=== PATIENT | male | born 1985 | race Caucasian/White ===

== ENCOUNTER 2023-06-26 15:01 | Emergency (ER) | payer OTHER, SELFPAY ==
[2023-06-26] VITALS (15 sets, daily range): BP systolic 122–162; BP diastolic 76–104; PULSE 67–90; RESP 12–27; TEMP 36.7–36.9; O2SAT 97–99
--- NOTE | ~2023-06-26 | XR_ITS ---
EXAMINATION: XR chest 1V portable INDICATION: Chest pain TECHNIQUE: Portable AP chest at 1521 hours COMPARISON: None available FINDINGS: The lungs are free of acute opacities. No pleural effusion or pneumothorax. The cardiomedia stinal silhouette is normal. IMPRESSION: 1. No acute cardiopulmonary abnormality. Reviewed, dictated and finalized at location L. [facility] [employer] MANAGER
--- NOTE | 2023-06-26 15:10 | ECG_ITS ---
Measurements Intervals [place] Rate: 74 P: 69 CA: 139 QRS: 93 QRSD: 72 T: 60 QT: 333 QTc: 371 Interpretive Statements SINUS RHYTHM WITH SINUS ARRHYTHMIA RIGHT AXIS DEVIATION PEAKED T WAVES- CONSIDER HYPERKALEMIA BASELINE WANDER- II, III, AVR, AVL, AVF ABNORMAL ECG NO PREVIOUS ECG AVAILABLE FOR COMPARISON Electronically Signed On 06-26-2023 18:39:07 [employer] by Alton Mosqueda D.O.
[2023-06-26 15:37] LABS: Basophils Absolute Auto 0.12 K/mm3 (0.00-0.10); Eosinophils Percent Auto 2.5 % (1.0-6.0); Hemoglobin 15.5 g/dL (14.0-18.0); Immature Granulocyte Absolute 0.02 K/mm3 (0.00-0.00); Immature Granulocyte Percent A 0.2 % (0.0-0.0); Lymphocytes Absolute Auto 2.03 K/mm3 (1.10-4.50); Lymphocytes Percent Auto 16.8 % (18.0-42.0); Mean Corpuscular Hemoglobin 30.5 pg (27.0-31.0); Mean Corpuscular Volume 92.5 fL (78.0-102.0); Mean Platelet Volume 9.9 fl (8.7-11.0); Monocytes Absolute Auto 0.79 K/mm3 (0.10-0.90); Monocytes Percent Auto 6.5 % (2.0-11.0); Neutrophils Absolute Auto 8.8 K/mm3 (1.7-7.2); Platelet Count Result 293 K/mm3 (150-420); Red Blood Count 5.08 M/mm3 (4.70-6.10); White Blood Count 12.1 K/mm3 (4.8-10.8)
[2023-06-26 15:51] LABS: Partial Thromboplastin Time 28.1 SEC (23.90-30.70); Prothrombin Time 10.9 Seconds (9.50-12.10)
[2023-06-26 16:19] LABS: Alanine Aminotransferase 20 U/L (16-63); Albumin Level 3.9 g/dL (3.4-5.0); Alkaline Phosphatase 82 U/L (46-116); Anion Gap 7 mmol/L (8-16); Aspartate Amino Transferase 13 U/L (15-37); Bilirubin,Total 0.4 mg/dL (0.00-1.00); Blood Urea Nitrogen 11 mg/dL (7-18); Calcium 8.7 mg/dL (8.5-10.1); Carbon Dioxide 29 mmol/L (21-32); Chloride 104 mmol/L (98-108); Estimated CRCL calculation 79 ml/min; Estimated Glomerular Filt Rate > 60; Glucose 99 mg/dL (70-99); Lipase 38 U/L (16-77); NT Pro B Type Natriuretic Pept 33 pg/mL (0-125); Osmolality Calculated 289 mOsm/kg (285-295); Potassium 4.5 mmol/L (3.5-5.1); Sodium 140 mmol/L (136-145); Troponin I 4.8 ng/L (0.00-60.4)
--- NOTE | 2023-06-26 16:47 | ED.CHESTPAIN ---
HPI - Chest Pain General Chief Complaint: Chest Pain Stated Complaint: chest pain Time Seen by Provider: 06/26/23 15:02 Source: patient, family and EMS Mode of arrival: ambulatory History of Present Illness HPI narrative: this is a 38 year male that was brought in by EMS after he developed chest pain that was episodic reproducible and his father gave him a dose of Xanax prior to arrival which helped his pain significantly. Patient did feel nauseated with some diaphoresis with some mild shortness of breath no cough no fever chills. The patient has a family history of heart disease but had a cardiac stress test approximately 6 to 8 months ago which was absolutely normal. MD complaint: chest pain and chest discomfort Onset (ago): day(s) Timing of current episode: episodic Prior episodes: Yes Onset: during rest Pain location: left chest Pain radiation: none Severity: mild Quality: tightness and aching Related Data Allergies Allergy/AdvReac Type Severity Reaction Status Date / Time Penicillins Allergy Anaphylaxis Verified 06/26/23 15:34 Review of Systems Review of Systems: All systems reviewed & are unremarkable except as noted in HPI and below PMFSH Past Medical History Medical History Anxiety Exam Const: General: healthy appearing Nutritional Appearance: well nourished Orientation/consciousness: patient oriented x3 Limitations: no limitations Neck: Neck: normal visual inspection, no lymphadenopathy and no meningeal signs Chest: Chest palpation & inspection: normal inspection of the chest Resp: Effort & Inspection: normal respiratory effort Auscultation: clear to auscultation bilaterally Cardio: Rate: regular rate Rhythm: regular rhythm Other: reproducible chest pain with palpation GI: GI Palp: Yes Soft to palpation Auscultation: normal bowel sounds : General: Yes bladder normal to palpation Urinary Catheter: Urinary Catheter: patent and draining Skin: General skin exam: normal color Rashes: no rashes Neuro: General: patient oriented x3, moves all extremities, no meningeal signs and no focal motor deficits Extrem: General: normal to inspection Psych: Affect: Anxious affect present Course Course Emergency Course: EKG shows normal sinus rhythm, troponins within normal limits CBC was mildly elevated at 12,000 and chest x-ray with no acute abnormality. Patient symptoms have improved and will have him follow with his primary. Vital Signs Vital signs: Vital Signs Pulse Rate 88 06/26/23 15:04 Respiratory Rate 17 06/26/23 15:04 Temperature 36.7 C 06/26/23 15:05 Pulse Rate 84 06/26/23 16:31 Respiratory Rate 16 06/26/23 16:31 Blood Pressure 128/91 H 06/26/23 16:30 Pulse Oximetry 98 06/26/23 16:31 Oxygen Delivery Room Air 06/26/23 15:05 MDM - Chest Pain Lab Data 06/26/23 15:30 06/26/23 15:31 Labs: Lab Results 06/26/23 06/26/23 Range/Units 15:30 15:31 WBC 12.1 H (4.8-10.8) K/mm3 RBC 5.08 (4.70-6.10) M/mm3 Hgb 15.5 (14.0-18.0) g/dL Hct 47.0 (40.0-54.0) % MCV 92.5 (78.0-102.0) fL MCH 30.5 (27.0-31.0) pg MCHC 33.0 (32.0-36.0) g/dL RDW 13.0 (11.6-14.4) % Plt Count 293 (150-420) K/mm3 MPV 9.9 (8.7-11.0) fl Immature Gran % (Auto) 0.2 H (0.0-0.0) % Neut % (Auto) 73.0 H (50.0-70.0) % Lymph % (Auto) 16.8 L (18.0-42.0) % Barber % (Auto) 6.5 (2.0-11.0) % Eos % (Auto) 2.5 (1.0-6.0) % Baso % (Auto) 1.0 (0.0-1.0) % Lymph # (Auto) 2.03 (1.10-4.50) K/mm3 Barber # (Auto) 0.79 (0.10-0.90) K/mm3 Eos # (Auto) 0.30 (0.02-0.50) K/mm3 Baso # (Auto) 0.12 H (0.00-0.10) K/mm3 Abs Immat Gran (auto) 0.02 H (0.00-0.00) K/mm3 Absolute Neuts (auto) 8.8 H (1.7-7.2) K/mm3 Absolute Nucleated RBC 0.00 (0.00-0.00) K/mm3 Nucleated RBC % 0.0 (0-0.0) % PT 10.9 (9.50-12.10) Seconds INR 1.0 A
== END 2023-06-26 17:01 | disposition home or self-care (01) ==
PROVIDERS: Emergency Provider Emergency Medicine
DX: R07.89 Other chest pain (principal); F41.9 Anxiety disorder, unspecified; J40 Bronchitis, not specified as acute or chronic
CPT/HCPCS: 36415; 71045; 80053; 83690; 83880; 84484; 85025; 85610; 85730; 93005; 99284